=== PATIENT | female | born 1980 | race Caucasian/White ===

== ENCOUNTER 2020-03-21 15:27 | Emergency (ER) | payer OTHER, SELFPAY ==
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
[2020-03-21 15:36] VITALS: BP 134/78; PULSE 86; RESP 18; TEMP 37.1; O2SAT 100
== END 2020-03-21 16:09 | disposition home or self-care (01) ==
PROVIDERS: Emergency Provider Nurse Practitioner Family; PCP Nurse Practitioner Adult Health
DX: M54.42 Lumbago with sciatica, left side (principal); F41.9 Anxiety disorder, unspecified; F32.9 Major depressive disorder, single episode, unspecified
CPT/HCPCS: 81003; 81025; 99213; G0463

== ENCOUNTER 2021-06-03 19:20 | Emergency (ER) | payer OTHER, SELFPAY ==
[2021-06-03 19:30] VITALS: BP 133/85; PULSE 81; RESP 16; TEMP 36.8; O2SAT 100
[2021-06-03 19:38] VITALS: BP 133/85; PULSE 81; RESP 16; TEMP 36.8; O2SAT 100
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
== END 2021-06-03 19:53 | disposition home or self-care (01) ==
PROVIDERS: Emergency Provider Nurse Practitioner Family; PCP Nurse Practitioner Adult Health
DX: J02.9 Acute pharyngitis, unspecified (principal)
CPT/HCPCS: 87081; 87880; 99213; G0463

== ENCOUNTER 2021-12-16 10:10 | Emergency (ER) | payer OTHER, MEDICAID, SELFPAY ==
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
[2021-12-16 10:19] VITALS: BP 142/90; PULSE 98; RESP 16; TEMP 37.3; O2SAT 97
[2021-12-16 10:26] VITALS: BP 142/90; PULSE 98; RESP 16; TEMP 37.3; O2SAT 97
== END 2021-12-16 10:40 | disposition home or self-care (01) ==
PROVIDERS: Emergency Provider Nurse Practitioner Family; PCP Nurse Practitioner Adult Health
DX: R35.0 Frequency of micturition (principal); R39.15 Urgency of urination; F41.9 Anxiety disorder, unspecified
CPT/HCPCS: 81003; 87086; 87088; 99213; G0463

== ENCOUNTER 2022-03-17 14:06 | Outpatient (CLI) | payer MEDICAID, SELFPAY ==
--- NOTE | ~2022-03-17 | MM_ITS ---
EXAMINATION: MM screening [facility] BI w [facility] HISTORY: Baseline screening mammogram TECHNIQUE: Craniocaudal and mediolateral oblique 3-D tomosynthesis images were obtained and synthetic 2-D images were generated. CAD analysis was submitted and interpreted. COMPARISON: None, baseline BREAST PARENCHYMAL COMPOSITION: There are scattered areas of fibroglandular density. FINDINGS: RIGHT BREAST: There is no suspicious mass, calcification, or architectural distortion to suggest syeda gnancy. LEFT BREAST: There is an asymmetry in the middle third of the lower breast in line with the nipple ax is on the craniocaudal view. There is an asymmetry in the anterior third of the breast just inferior to the nipple on the mediolateral oblique view. IMPRESSION: 1. Left breast asymmetries. 2. Additional mammographic views and possible breast ultrasound are recommended. BI-RADS Category 0: Incomplete: Needs additional imaging evaluation. Reviewed, dictated and finalized at location A. IMPRESSION: 1. Left breast asymmetries. 2. Additional mammographic views and possible breast ultrasound are recommended . BI-RADS Category 0: Incomplete: Needs additional imaging evaluation.
== END 2022-03-17 14:07 | disposition home or self-care (01) ==
LOC: CHSIMG 14:09
PROVIDERS: PCP Nurse Practitioner Adult Health; Visit Provider Nurse Practitioner Adult Health
DX: Z12.31 Encounter for screening mammogram for malignant neoplasm of breast (principal)
CPT/HCPCS: 77063; 77067

== ENCOUNTER 2022-04-12 09:50 | Outpatient (CLI) | payer OTHER, MEDICAID, SELFPAY ==
--- NOTE | ~2022-04-12 | MMUS_ITS ---
EXAMINATION: MM diagnostic [facility]i LT w [facility], US breast LT complete HISTORY: Follow-up left breast asymmetry TECHNIQUE: Additional 3-D tomosynthesis images of the left breast were performed and synthetic 2-D im ages were generated. CAD analysis was submitted and interpreted. High resolution complete left breast ultrasound was performed. COMPARISON: 03/17/2022 BREAST PARENCHYMAL COMPOSITION: The breasts are heterogeneously dense, which may obscure small masses FINDINGS: MAMMOGRAPHIC FINDINGS: There are no suspicious masses, calcifications or architectural distortion in the left breast to sugg est malignancy. ULTRASOUND: Limited left breast ultrasound: Normal heterogeneous echotexture without focal solid or cystic mass. IMPRESSION: 1. No evidence for malignancy in the left breast. 2. Routine yearly screening mammogram and regular clinical breast examination are recommended. BI-RADS Category 1: Negative Reviewed, dictated and finalized at location A. IMPRESSION: 1. No evidence for malignancy in the left breast. 2. Routine yearly screening mammogram and regular clinical breast examination a re recommended. BI-RADS Category 1: Negative
== END 2022-04-12 09:51 | disposition home or self-care (01) ==
LOC: CHSIMG 09:52
PROVIDERS: PCP Nurse Practitioner Adult Health; Visit Provider Nurse Practitioner Adult Health
DX: R92.8 Other abnormal and inconclusive findings on diagnostic imaging of breast (principal)
CPT/HCPCS: 76641; 77061; 77065; G0279